=== PATIENT | male | born 1970 | race African-American/Black ===

== ENCOUNTER 2018-08-02 15:09 | Emergency (ER) | payer SELFPAY ==
[~2018-08-02] VITALS: Ht 177.8 cm; Wt 90.0 kg
[2018-08-02] MEDS ORDERED: LORAZEPAM 2MG/ML CPJ IM STA (16:32)
[2018-08-02] MEDS ORDERED: HALOPERIDOL LACTATE 5MG/ML VIAL IM STA (16:32)
[2018-08-02] MEDS ORDERED: SODIUM CHLORIDE 0.9% 1,000 ML IV ONE (16:32)
[2018-08-02 17:07] LABS: CLARITY URINE CLEAR (CLEAR); COLOR URINE YELLOW (YELLOW); KETONES URINE NEGATIVE (NEGATIVE); LEUKOCYTE ESTERASE URINE NEGATIVE (NEGATIVE); NITRITE URINE NEGATIVE (NEGATIVE); OCCULT BLOOD URINE NEGATIVE (NEGATIVE); PROTEIN URINE TRACE (NEGATIVE); SPECIFIC GRAVITY URINE 1.003 (1.005-1.030); UROBILINOGEN URINE 0.2 E.U./dL (0.2-1.0)
[2018-08-02 17:31] LABS: *AMPHETAMINES SCREEN URINE NEGATIVE (NEGATIVE); *BARBITURATES SCREEN URINE NEGATIVE (NEGATIVE)
[2018-08-02 17:32] LABS: *BENZODIAZEPINES SCREEN URINE NEGATIVE (NEGATIVE); *COCAINE SCREEN URINE NEGATIVE (NEGATIVE); CANNABINOID URINE SCREEN NEGATIVE (NEGATIVE); METHADONE URINE SCREEN NEGATIVE (NEGATIVE); OPIATES URINE SCREEN NEGATIVE (NEGATIVE); PHENCYCLIDINE URINE SCREEN NEGATIVE (NEGATIVE)
[2018-08-02 18:41] LABS: BASOPHILS % 1.5 % (0.0-2.0); CHLORIDE 107 mEq/L (98-107); HEMATOCRIT. 39.3 % (42.0-52.0); HEMOGLOBIN. 13.4 g/dL (14.0-18.0); LYMPHOCYTES % 45.6 % (20.0-50.0); MEAN CORPUSCULAR HEMOGLOBIN 30.8 pg (28.0-32.0); MEAN CORPUSCULAR VOLUME 90.2 fL (80.0-94.0); MONOCYTES % 8.3 % (2.0-8.0); NEUTROPHILS % 33.6 % (40.0-76.0); PLATELET 145 x1000/uL (130-400); RED BLOOD CELL COUNT 4.36 mill/uL (4.7-6.1); RED CELL DISTRIBUTION WIDTH 13.5 % (11.6-14.6)
[2018-08-02 18:48] LABS: ETHANOL BLOOD 242 mg/dL
[2018-08-03 03:32] VITALS: BP 133/76
== END 2018-08-03 03:33 | disposition home or self-care (01) ==
LOC: ER 15:09
DX: F10.229 Alcohol dependence with intoxication, unspecified (principal); F91.8 Other conduct disorders; D72.819 Decreased white blood cell count, unspecified; R94.5 Abnormal results of liver function studies; Y90.8 Blood alcohol level of 240 mg/100 ml or more; Z78.1 Physical restraint status
CPT/HCPCS: 36415; 80053; 80305; 80307; 80329; 81003; 82962; 85025; 87186; 96360; 96361; 96372; 99283; J1630; J2060; J7030